=== PATIENT | female | born 1995 | race African-American/Black ===

== ENCOUNTER 2024-11-06 19:53 | Emergency (ER) | payer OTHER, SELFPAY ==
--- NOTE | ~2024-11-06 | US_ITS ---
CLINICAL HISTORY: pregnany lower abd cramping US OB 1st trimester transabdominal Comparison: None Findings: Single intrauterine . CRL: 7.7 cm. EGA: 13 weeks 6 days. TRAVIS: 05/08/2025. Previously established gestational age: N/A. Cardiac activity: 152 bpm. Heterogeneous myometrium, incompletely evaluated. Right ovary measures 3.9 x 1.7 x 3.2 cm. 1.5 cm complex cyst possibly corpus luteum. Left ovary measures 3.4 x 1.8 x 3.0 cm and is within normal limits by transabdominal imaging. IMPRESSION: Single intrauterine estimated 13 weeks 6 days gestational age by today's ultrasound criteria. Heterogeneous myometrium, incompletely evaluated. This document has been electronically signed by: Di Mcdowell MD on 11/06/2024 21:46:21
[2024-11-06 19:55] VITALS: BP 108/78; PULSE 101; RESP 18; TEMP 36.9; O2SAT 100; BMI 28.3
[2024-11-06 20:11] LABS: MANUAL DIFF FLAG NO
[2024-11-06 20:16] LABS: Basophils Percent Auto 0.4 % (0-2); Eosinophils Absolute Auto 0.1 X10*3/uL (0.0-0.4); Hematocrit 37.4 % (37.0-47.0); Hemoglobin 12.8 g/dl (12.0-16.0); Imm Gran Abs Auto 0.06 X10*3/uL (0.00-0.03); Imm Gran Pct Auto 0.7 % (0.0-0.4); Lymphocytes Absolute Auto 0.6 X10*3/uL (1.2-4.9); Lymphocytes Percent Auto 7.7 % (20-40); Mean Corpuscular HGB Conc 34.2 g/dl (31.0-35.0); Mean Corpuscular Volume 87.8 fL (80.0-98.0); Mean Platelet Volume 10.7 fL (9.4-12.3); Monocytes Absolute Auto 0.4 X10*3/uL (0.1-1.2); Monocytes Percent Auto 4.5 % (2-11); Neutrophils Absolute Auto 7.1 x10*3/uL (2.0-8.3); Neutrophils Percent Auto 85.7 % (45-73); Platelet Count 203 X10*3/uL (160-400); Red Blood Count 4.26 X10*6/uL (4.20-5.50); Red Cell Distribution Width 12.9 % (11.0-16.0); White Blood Count 8.2 X10*3/uL (4.8-10.8)
[2024-11-06 20:39] LABS: Alanine Aminotransferase 20 U/L (0-31); Alkaline Phosphatase 48 U/L (39-117); Anion Gap 13 (12-20); Aspartate Amino Transferase 16 U/L (5-31); Bilirubin Total 0.4 mg/dL (0.0-1.0); Blood Urea Nitrogen 10 mg/dL (9-16); Carbon Dioxide 21 mmol/L (22-29); Chloride 107 mmol/L (96-108); Creatinine Clr Calc Pharmacy 131.1; Estimated Glomerular Filt Rate > 60; Glucose Random 95 mg/dL (60-115); Potassium 3.7 mmol/L (3.3-5.1); Sodium 137 mmol/L (135-145); Total Protein 7.5 g/dL (6.5-8.0)
[2024-11-06 20:57] LABS: HCG Quantitative 49912 mIU/mL
[2024-11-06 22:47] VITALS: BP 111/73; PULSE 86; RESP 16; TEMP 36.7; O2SAT 98
--- NOTE | 2024-11-06 22:48 | ED_ITS ---
HPI - Nausea/Vomiting/Diarrhea General Chief complaint: Nausea/Vomiting/Diarrhea Stated complaint: abd pain - 3 mo Time Seen by Provider: 11/06/24 22:46 Source: patient Mode of arrival: ambulatory Limitations: no limitations History of Present Illness ED Provider: HPI Narrative: Patient is 13 weeks been nauseated and vomiting for last few days With diffuse abdominal discomfort no vaginal bleed no urinary symptoms no fever or chills Related Data Previous Rx's ?Medication ?Instructions ?Recorded nitrofurantoin 100 mg PO Q12H 7 days #14 caps 11/07/24 monohydrate/macrocrystals 100 mg capsule (Macrobid) ondansetron 4 mg disintegrating 4 mg PO Q6-8H PRN nausea and 11/07/24 tablet vomiting #10 tabs Allergies Allergy/AdvReac Type Severity Reaction Status Date / Time No Known Allergies Allergy Verified 11/06/24 19:59 Review of Systems 2 Review of Systems: Yes all other systems are reviewed and are negative [facility] Social History Social History Alcohol intake: current Alcohol intake frequency: holidays/special occasions only Smoked in Last 30 Days: No Use of substances other than those prescribed or required for medical reasons: No Advance Directives: No Advance Directives Information Provided: Yes Patient : Yes Physical Exam 2 Vital Signs: Vital Signs: Last Vital Signs Temp 98.1 F 11/07/24 02:18 Pulse 89 11/07/24 02:18 Resp 16 11/07/24 02:18 BP 104/58 L 11/07/24 02:18 Pulse Ox 96 11/07/24 02:18 O2 Del Method Room Air 11/07/24 02:18 BMI result Body Mass Index 28.3 Appearance: Alert. Oriented X3. No acute distress. ENT: Pharynx normal. Oral Mucosa moist Neck: Normal inspection. Neck supple. CVS: Normal heart rate and rhythm. Pulses normal. Respiratory: No respiratory distress. Equal air entry bilateral, no wheezing/rales/rhonchi Abdomen: Soft and nontender. Bowel sounds are present, suprapubic fullness, no CVA tenderness Skin: Skin warm and dry. Normal skin color. Normal skin turgor. Extremities: No lower extremity edema. No calf tenderness Neuro: Oriented X 3. No motor deficit. No sensory deficit.No cerebellar signs , cranial nerves II-XII intact Medications Administered Discontinued Medications Generic Name Dose Route Start Last Admin Trade Name Horacio PRN Reason Stop Dose Admin Acetaminophen 650 mg 11/06/24 23:13 11/06/24 23:27 Acetaminophen 325 Mg Tablet PO 11/06/24 23:14 650 mg ONCE ONE Administration Sodium Chloride 1,000 mls @ 999 mls/hr 11/06/24 23:13 11/07/24 00:57 Ns IV 11/07/24 00:13 Infused .Q1H1M ONE Infusion Nitrofurantoin Macrocrystals 100 mg 11/07/24 02:02 11/07/24 02:12 Nitrofurantoin Monohyd/M-Cryst 100 Mg Capsule PO 11/07/24 02:03 100 mg ONCE ONE Administration Ondansetron HCl 4 mg 11/06/24 23:13 11/06/24 23:28 Ondansetron Hcl 4 Mg/2 Ml Vial IVPUSH 11/06/24 23:14 4 mg ONCE ONE Administration Medical Decision Making Medical Decision Making [facility] Narrative: Patient with hyperemesis gravidarum received IV fluids feeling much better taking p.o. fluids discharge patient home Differential Diagnosis Differential Diagnoses: The differential diagnosis associated with the presentation includes Lab Data MDM Lab Attestation statement: I reviewed the patient's lab results. 11/06/24 20:06 11/06/24 20:06 Labs: Lab Results 11/06/24 11/07/24 Range/Units 20:06 01:20 WBC 8.2 (4.8-10.8) X10*3/uL RBC 4.26 (4.20-5.50) X10*6/uL Hgb 12.8 (12.0-16.0) g/dl Hct 37.4 (37.0-47.0) % MCV 87.8 (80.0-98.0) fL MCH 30.0 (27.0-33.0) pg MCHC 34.2 (31.0-35.0) g/dl RDW 12.9 (11.0-16.0) % Plt Count 203 (160-400) X10*3/uL MPV 10.7 (9.4-12.3) fL Immature Gran % (Auto) 0.7 H (0.0-0.4) % Neut % (Auto) 85.7 H (45-73) % Lymph % (Auto) 7.7 L (20-40) % [place] % (Auto) 4.5 (2-11) % Eos % (Auto) 1.0 (0-4) % Baso % (Auto) 0.4 (0-2) % Lymph # (Auto) 0.6 L (1.2-4.9) X10*3/uL [place] # (Auto) 0.4 (0.1-1.2) X10*3/uL Eos # (Auto) 0.1 (0.0-0.4) X10*3/uL Baso # (Auto) 0.0 (0.0-0.2) X10*3/uL Abs Immat Gran (auto) 0.06 H (0.00-0.03) X10*3/uL Absolute Neuts (auto) 7.1 (2.0-8.3) x10*3/uL Absolute Nucleated RBC 0.000 (0.0-0.012) X10*3/uL Nucleated RBC % (auto) 0.0 (0.0-0.2) /100WBC PT 12.0 (10.9-12.4) SEC INR 1.0 (0.9-1.1) Sodium 137 (135-145) mmol/L Potassium 3.7 (3.3-5.1) mmol/L Chloride 107 (96-108) mmol/L Carbon Dioxide 21 L (22-29) mmol/L Anion Gap 13 (12-20) BUN 10 (9-16) mg/dL Creatinine 0.61 (0.5-1.4) mg/dL Estim Creat Clear Calc 131.1 Estimated GFR > 60 Random Glucose 95 (60-115) mg/dL Calcium 9.0 (8.4-10.2) mg/dL Total Bilirubin 0.4 (0.0-1.0) mg/dL AST 16 (5-31) U/L ALT 20 (0-31) U/L Alkaline Phosphatase 48 (39-117) U/L Total Protein 7.5 (6.5-8.0) g/dL Albumin 4.0 (3.5-5.0) g/dL Beta HCG, Quant 82616 mIU/mL Urine Color Yellow Urine Appearance Cloudy Urine pH 6.0 (5.0-9.0) Ur Specific [place] >= 1.030 H (1.005-1.025) Urine Protein Trace (Neg-Trace) mg/dL Urine Glucose (UA) Negative (Negative) mg/dL Urine Ketones 40 (Negative) mg/dL Urine Blood Trace H (Negative) Urine Nitrite Negative (Negative) Ur Leukocyte Esterase Small (1+) H (Negative) Urine RBC 11-20 H (0-2) /HPF Urine WBC 0-5 (0-5) /HPF Ur Squamous Epith Cells 3-5 (0-2) /HPF Urine Bacteria 1+ (None Seen) Hyaline Casts 0-2 (0-2) /LPF Blood Type B Positive Independent Interpretation I performed an independent interpretation of an: Ultrasound Radiology Impression Discussion of test interpretation with radiology: I have reviewed the radiologist's reading. Radiologist Impression: [place] [id number] Ultrasound Report Signed Patient: Mary Lou Jean MR#: [id number] : 1995 Acct:[id number] Age/Sex: 29 / F ADM Date: 11/06/24 Loc: HO.ED Attending Dr: Ordering Physician: Frank Frazier Date of Service: 11/06/24 Procedure(s): US OB limited Accession Number(s): [id number] cc: Frank Frazier; Physician,Unknown ~ CLINICAL HISTORY: pregnany lower abd cramping US OB 1st trimester transabdominal Comparison: None Findings: Single intrauterine . CRL: 7.7 cm. EGA: 13 weeks 6 days. TRAVIS: 05/08/2025. Previously established gestational age: N/A. Cardiac activity: 152 bpm. Heterogeneous myometrium, incompletely evaluated. Right ovary measures 3.9 x 1.7 x 3.2 cm. 1.5 cm complex cyst possibly corpus luteum. Left ovary measures 3.4 x 1.8 x 3.0 cm and is within normal limits by transabdominal imaging. IMPRESSION: Single intrauterine estimated 13 weeks 6 days gestational age by today's ultrasound criteria. Heterogeneous myometrium, incompletely evaluated. This document has been electronically signed by: Di Mcdowell MD on 11/06/2024 21:46:21 Discharge Plan Discharge Clinical Impression: Urinary tract infection affecting Patient Disposition: Home, Self-Care Instructions: Urinary Tract Infection in (ED) Additional Instructions: Drink plenty of fluids Take antibiotic as prescribed Medicine for nausea as prescribed Report to the ER if high fever/continue vomiting/continue pain Prescriptions: New nitrofurantoin monohyd/m-cryst [Macrobid] 100 mg capsule 100 mg PO Q12H 7 Days Qty: 14 0RF Rx Instructions: must administer with a meal/food ondansetron 4 mg tablet,disintegrating 4 mg PO Q6-8H PRN (Reason: nausea and vomiting) Qty: 10 0RF Interventions: ED Discharge Assessment Last Done: 11/07/24 02:18 Discharge Date/Time: 11/07/24 02:21 Print Language: Persian Melvin
[2024-11-06] MEDS: Acetaminophen 325 MG TABLET 650 MG PO (23:27)
[2024-11-06] MEDS: ondansetron HCL 4 MG/2 ML VIAL IVPUSH (23:28)
[2024-11-06] MEDS: 0.9 % Sodium Chloride 1,000 ML 999 ML IV (23:31)
[2024-11-07 00:58] VITALS: BP 101/55; PULSE 87; RESP 16; TEMP 36.7; O2SAT 96
[2024-11-07 01:32] LABS: Appearance Urine Cloudy; Color Urine Yellow; Glucose Urine UA Negative (Negative); Leukocyte Esterase Urine Small (1+) (Negative); Nitrite Urine Negative (Negative); Specific Gravity - Urine >= 1.030 (1.005-1.025); UMIC TRIGGER UACC YES; Urine Blood Trace (Negative); Urine Ketones 40 mg/dL (Negative); Urine Protein Trace mg/dL (Neg-Trace)
[2024-11-07 01:39] LABS: Bacteria Urine 1+ (None Seen); Hyaline Casts Urine 0-2 /LPF (0-2); UACC Culture Trigger YES; WBC Urine 0-5 /HPF (0-5)
[2024-11-07] MEDS: Nitrofurantoin Monohyd/M-Cryst 100 MG CAPSULE PO (02:12)
[2024-11-07 02:13] VITALS: BP 104/58; PULSE 89; RESP 16; TEMP 36.7; O2SAT 96
[2024-11-07 02:18] VITALS: BP 104/58; PULSE 89; RESP 16; TEMP 36.7; O2SAT 96
== END 2024-11-07 02:21 | disposition home or self-care (01) ==
PROVIDERS: Physician Assistant; Emergency Provider Internal Medicine
DX: O23.41 Unspecified infection of urinary tract in pregnancy, first trimester (principal); O21.0 Mild hyperemesis gravidarum; N39.0 Urinary tract infection, site not specified; R10.2 Pelvic and perineal pain; Z3A.13 13 weeks gestation of pregnancy; Z79.899 Other long term (current) drug therapy
CPT/HCPCS: 36415; 76815; 80053; 81001; 84702; 85025; 85610; 86900; 86901; 87086; 96361; 96374; 99284; J2405

== ENCOUNTER → 2024-11-06 20:39 | Outpatient (BNV) | payer MEDICAID, SELFPAY | PROVIDERS: Visit Provider Radiology Diagnostic Radiology | DX: O26.891 Other specified pregnancy related conditions, first trimester (principal) | CPT/HCPCS: 76815 ==